=== PATIENT | female | born 1980 | race Caucasian/White ===

== ENCOUNTER 2017-10-19 21:24 | Emergency (ER) | payer SELFPAY ==
[2017-10-19 21:27] VITALS: BP 125/74; TEMP 98.3
[2017-10-19 21:57] LABS: COLLECTION METHOD CLEAN CATCH
[2017-10-19 22:07] LABS: PH 5 (5-8); SQUAMOUS EPITHELIAL 0-2 /hpf; URINE APPEARANCE Clear; URINE BACTERIA None Seen /hpf; URINE BILIRUBIN Negative (NEGATIVE); URINE BLOOD Negative (NEGATIVE); URINE COLOR Yellow; URINE GLUCOSE 3+ (NEGATIVE); URINE KETONE Negative (NEGATIVE); URINE LEUKOCYTE ESTERASE Negative (NEGATIVE); URINE NITRATE Negative (NEGATIVE); URINE PROTEIN(semi-quant) Negative (NEGATIVE); URINE RBC 0-2 /hpf; URINE UROBILINOGEN Negative (NEGATIVE)
[2017-10-19] MEDS ORDERED: GLUCOPHAGE500 MG/TAB PO (22:14)
[2017-10-19] MEDS ORDERED: PRILOSEC 20MG20 MG PO (22:14)
[2017-10-19] MEDS ORDERED: VIVLODEX5 MG (22:14)
[2017-10-19] MEDS ORDERED: GLUCOTROL 5M5 MG/TAB PO (22:14)
[2017-10-19 22:20] LABS: BASO % 0.7 % (0.0-2.0); EOS # 0.2 (0.0-0.7); EOS % 3.8 % (0-4.0); GRAN # 3.2 (1.4-6.5); GRAN % 55.7 % (42.2-75.2); HEMATOCRIT 44.8 % (37.0-47.0); HEMOGLOBIN 15.8 g/dl (12.5-16.0); LYMPH % 33.9 % (20.0-51.0); MEAN CELL VOLUME 86 fl (80.0-100.0); MEAN CORPUSCULAR HEMOGLOBIN 30 pg (27.0-31.0); MEAN CORPUSCULAR HGB CONC 35 g/dl (33.0-37.0); MEAN PLATELET VOLUME 9.9 fl (7.4-10.4); MONO # 0.3 (0.1-0.6); MONO % 5.7 % (1.7-9.3); PLATELET COUNT 221 K/mm3 (130-400); RED BLOOD COUNT 5.22 M/mm3 (4.10-5.30); REDCELL DISTRIBUTION WIDTH-CV 14.2 % (11.5-14.5)
[2017-10-19 22:30] LABS: ALBUMIN 4.2 gm/dL (3.5-5.0); BILIRUBIN,TOTAL 0.4 mg/dL (0.0-1.0); CALCIUM 9.1 mg/dL (8.4-10.2); CREATININE, serum 0.54 mg/dL (0.52-1.25); POTASSIUM 3.8 mmol/L (3.4-5.0); TOTAL PROTEIN 8.4 gm/dL (6.4-8.2)
[2017-10-19 23:08] VITALS: PULSE 80
== END 2017-10-19 23:09 | disposition home or self-care (01) ==
LOC: COL.ER 21:24
PROVIDERS: Emergency Medicine; Nurse Practitioner Primary Care
DX: R10.32 Left lower quadrant pain (principal); R94.5 Abnormal results of liver function studies; E11.9 Type 2 diabetes mellitus without complications; F17.210 Nicotine dependence, cigarettes, uncomplicated; Z79.84 Long term (current) use of oral hypoglycemic drugs